=== PATIENT | male | born 1970 | race Caucasian/White ===

== ENCOUNTER 2018-01-03 05:23 | Inpatient (IN) | payer SELFPAY ==
[2018-01-03] MEDS ORDERED: VANCOMYCIN HCL INJ 1000 MG VIAL IV ONE (05:39)
[2018-01-03] MEDS ORDERED: CEFTRIAXONE 1 GM/D5W RTU 50 ML IV ONE (05:39)
--- NOTE | 2018-01-03 05:43 | ER Document Report ---
ED Medical Screen (RME) - General Chief Complaint: Hand Swelling Stated Complaint: POSSIBLE HAND INFECTION Time Seen by Provider: 01/03/18 05:38 TRAVEL OUTSIDE OF THE [place] IN LAST 30 DAYS: No - HPI Notes: 01/03/18 05:41 Patient is a 47-year-old male who presents to the ED complaining of worsening left hand pain and swelling as well as abscess over the last week. Patient states that he had a splinter to his left hand and was evaluated by another medical group at that time. He was placed on Keflex and has been on it for 6 days, but the pain and swelling has become worse. Patient states that he has limited range of motion to his hand/fingers due to the swelling and the swelling extends into his left arm. Denies CP/SOB/Abd pain/nvd. I have treated and performed a rapid initial assessment of this patient. A comprehensive ED assessment and evaluation of the patient, analysis of test results and completion of medical decision making process will be conducted by additional ED providers. PHYSICAL EXAMINATION: GENERAL: Well-appearing, well-nourished and in no acute distress. A&Ox4. Answers questions appropriately. LUNGS: Breath sounds clear to auscultation bilaterally and equal. No wheezes rales or rhonchi. HEART: Regular rate and rhythm without murmurs, rubs, gallops. MS: Left hand is very swollen, erythemic, and abscess to palm noted. Pt has difficulty extending/flexing digits and tenderness/pain in doing so. + tenderness to palm as well. Extremities: see above. NEUROLOGICAL: Normal speech, normal gait. PSYCH: Normal mood, normal affect. 01/03/18 05:45 - Related Data Allergies/Adverse Reactions: hydrocodone bitartrate [From Vicodin ES] Allergy (Intermediate, Verified 14:55) Hives Penicillins Allergy (Unknown, Verified 10/29/11 15:34) Past Medical History - Social History Chew tobacco use (# tins/day): No Frequency of alcohol use: Social Drug Abuse: Marijuana Renal/ Medical History: Denies: Hx Peritoneal Dialysis Past Surgical History: Reports: Hx Appendectomy, Hx Orthopedic Surgery - hardware in L hip d/t fracture - Immunizations Hx Diphtheria, Pertussis, Tetanus Vaccination: Yes Physical Exam - Vital signs Vitals: Temp Pulse Resp BP Pulse Ox 98.6 F 88 18 138/88 H 100 01/03/18 05:33 01/03/18 05:33 01/03/18 05:33 01/03/18 05:33 01/03/18 05:33 Course - Vital Signs Vital signs: Temp Pulse Resp BP Pulse Ox 98.6 F 88 18 138/88 H 100 01/03/18 05:33 01/03/18 05:33 01/03/18 05:33 01/03/18 05:33 01/03/18 05:33
[2018-01-03] MEDS ORDERED: CEFTRIAXONE INJ 1000 MG VIAL IV ONE (05:46)
[2018-01-03] MEDS ORDERED: MORPHINE SULFATE 10 MG/ML INJ IV ONE ×2 (06:05→07:38)
[2018-01-03 06:34] LABS: ABSOLUTE LYMPHOCYTES (AUTO) 1.8 10^3/uL (0.5-4.7); ABSOLUTE MONOCYTES (AUTO) 1.7 10^3/uL (0.1-1.4); ABSOLUTE NEUT (AUTO) 11.1 10^3/uL (1.7-8.2); BASOPHILS % (AUTO) 0.1 % (0-2); HEMATOCRIT 41.5 % (37.9-51.0); HEMOGLOBIN 14.1 g/dL (13.5-17.0); LYMPHOCYTES % (AUTO) 12.6 % (13-45); MEAN CORPUSCULAR HEMOGLOBIN 30.9 pg (27.0-33.4); MEAN CORPUSCULAR HGB CONC 33.9 g/dL (32.0-36.0); MEAN CORPUSCULAR VOLUME 91 fl (80-97); MONOCYTES % (AUTO) 11.5 % (3-13); PLATELET COUNT 253 10^3/uL (150-450); RED BLOOD COUNT 4.56 10^6/uL (4.35-5.55); RED CELL DISTRIBUTION WIDTH 13.2 % (11.5-14.0); SEGMENTED NEUTROPHILS % (AUTO) 75.8 % (42-78); TOTAL CELLS COUNTED % (AUTO) 100 %; WHITE BLOOD COUNT 14.6 10^3/uL (4.0-10.5)
--- NOTE | 2018-01-03 06:34 | ER Document Report ---
ED Hand/Wrist Injury - General Chief Complaint: Hand Swelling Stated Complaint: POSSIBLE HAND INFECTION Time Seen by Provider: 01/03/18 05:38 Mode of Arrival: Ambulatory Notes: History of complain-47 years old male had a injury to the left hand almost 10 days ago, was seen in another facility and they put him on antibiotic. But the hand was kept on swelling, and become more painful and become red. He noted small piece came out of the wound. Since is not healing and more painful he came to the ER. Has some chills but no fever. He has injured his hand prior to that. REVIEW OF SYSTEMS: CONSTITUTIONAL : Denies fever, chills, or sweats. Denies recent illness. EENT: Denies eye, ear, throat, or mouth pain or symptoms. Denies nasal or sinus congestion or discharge. Denies throat, tongue, or mouth swelling or difficulty swallowing. CARDIOVASCULAR: Denies chest pain. Denies palpitations or racing or irregular heart beat. Denies ankle edema. RESPIRATORY: Denies cough, cold, or chest congestion. Denies shortness of breath, difficulty breathing, or wheezing. GASTROINTESTINAL: Denies abdominal pain or distention. Denies nausea, vomiting , or diarrhea. Denies blood in vomitus, stools, or per rectum. Denies black, tarry stools. Denies constipation. GENITOURINARY: Denies difficulty urinating, painful urination, burning, frequency, blood in urine, or discharge. MUSCULOSKELETAL: Denies back or neck pain or stiffness. Denies joint pain or swelling. SKIN: Denies rash, lesions or sores. HEMATOLOGIC : Denies easy bruising or bleeding. LYMPHATIC: Denies swollen, enlarged glands. NEUROLOGICAL: Denies confusion or altered mental status. Denies passing out or loss of consciousness. Denies dizziness or lightheadedness. Denies headache. Denies weakness or paralysis or loss of use of either side. Denies problems with gait or speech. Denies sensory loss, numbness, or tingling. Denies seizures. PSYCHIATRIC: Denies anxiety or stress. Denies depression, suicidal ideation, or homicidal ideation. ALL OTHER SYSTEMS REVIEWED AND NEGATIVE. Dictation was performed using [employer] voice recognition software PHYSICAL EXAMINATION: GENERAL: Well-appearing, well-nourished and in no acute distress. HEAD: Atraumatic, normocephalic. EYES: Pupils equal round and reactive to light, extraocular movements intact, sclera anicteric, conjunctiva are normal. ENT: Nares patent, oropharynx clear without exudates. Moist mucous membranes. NECK: Normal range of motion, supple without lymphadenopathy LUNGS: Breath sounds clear to auscultation bilaterally and equal. No wheezes rales or rhonchi. HEART: Regular rate and rhythm without murmurs ABDOMEN: Soft, nontender, nondistended abdomen. No guarding, no rebound. No masses appreciated. Musculoskeletal: Normal range of motion, no pitting or edema. No cyanosis. NEUROLOGICAL: Cranial nerves grossly intact. Normal speech, normal gait. Normal sensory, motor exams PSYCH: Normal mood, normal affect. SKIN: Examination of the left hand shows in between thumb and index finger on the palmar surface of the hand to areas of whitish discoloration swelling and partially healing wound. Rest of the hand is swelled up like an inflated rubber glove. With diffuse erythema is warm and tender to touch. TRAVEL OUTSIDE OF THE [place] IN LAST 30 DAYS: No - Related Data Allergies/Adverse Reactions: hydrocodone bitartrate [From Vicodin ES] Allergy (Intermediate, Verified 14:55) Hives Penicillins Allergy (Unknown, Verified 10/29/11 15:34) Past Medical History - Social History Smoking Status: Current Every Day Smoker Chew tobacco use (# tins/day): No Frequency of alcohol use: Social Drug Abuse: Marijuana Family History: Reviewed & Not Pertinent Patient has suicidal ideation: No Patient has homicidal ideation: No Renal/ Medical History: Denies: Hx Peritoneal Dialysis Past Surgical History: Reports: Hx Appendectomy, Hx Orthopedic Surgery - hardware in L hip d/t fracture - Immunizations Hx Diphtheria, Pertussis, Tetanus Vaccination: Yes Hx Pneumococcal Vaccination: 09/10/00 Physical Exam - Vital signs Vitals: Temp Pulse Resp BP Pulse Ox 98.6 F 88 18 138/88 H 100 01/03/18 05:33 01/03/18 05:33 01/03/18 05:33 01/03/18 05:33 01/03/18 05:33 Course - Re-evaluation Re-evalutation: 01/03/18 09:00 His case was discussed with orthopedic surgeon manager instrumentation, he requested me to IND and send him over to the orthopedic clinic there for follow-up - Vital Signs Vital signs: Temp Pulse Resp BP Pulse Ox 97.6 F 67 18 153/87 H 100 01/03/18 08:58 01/03/18 08:58 01/03/18 08:58 01/03/18 08:58 01/03/18 08:58 - Laboratory Result Diagrams: 01/03/18 06:00 01/03/18 06:00 Laboratory results interpreted by me: 01/03/18 01/03/18 06:00 06:00 WBC 14.6 H Lymphocytes % 12.6 L Absolute Neutrophils 11.1 H Absolute Monocytes 1.7 H Glucose 114 H ALT 126 H Procedures - Incision and Drainage Left Hand Time completed: 09:50 Type: Complex, Multiple Anesthetic type: 2% Lidocaine mL's of anesthetic: 15 Blade size: 11 I&D procedure: Betadine prep applied, Chlorprep applied, Iodoform packing placed Incision Method: Incision made by scalpel Amount/type of drainage: 25cc Notes: 01/03/18 10:02 History an extensive abscess in the left palmar surface of the hand. Removed large amount of cheesy pus. Discharge - Discharge Clinical Impression: Cellulitis of left hand, Abscess of left hand Condition: Fair Disposition: ADMITTED INPATIENT Admitting Provider: Hospitalist
[2018-01-03 06:46] LABS: ALANINE AMINOTRANSFERASE 126 U/L (21-72); ALKALINE PHOSPHATASE 67 U/L (38-126); ANION GAP 11 (5-19); ASPARTATE AMINO TRANSFERASE 58 U/L (17-59); BILIRUBIN,DIRECT 0.3 mg/dL (0.0-0.4); BILIRUBIN,TOTAL 0.4 mg/dL (0.2-1.3); BLOOD UREA NITROGEN 12 mg/dL (7-20); CALCIUM 9.6 mg/dL (8.4-10.2); CARBON DIOXIDE 28 mmol/L (22-30); CHLORIDE 103 mmol/L (98-107); GLUCOSE 114 mg/dL (75-110); POTASSIUM 4.4 mmol/L (3.6-5.0); SODIUM 141.5 mmol/L (137-145); TOTAL PROTEIN 7.7 g/dL (6.3-8.2)
--- NOTE | 2018-01-03 07:08 | RADIOLOGY REPORT (SQ) ---
EXAM DESCRIPTION: CT LT UPPER EXTREMITY WITH CLINICAL HISTORY: 47 years Male, Left hand swelling/infection COMPARISON: None. TECHNIQUE: IV contrast. Coronal and sagittal reformat. This exam was performed according to our departmental dose-optimization program, which includes automated exposure control, adjustment of the mA and/or kV according to patient size and/or use of iterative reconstruction technique. FINDINGS: 4.4 x 2.6 x 4.2 cm complex phlegmonous pattern mass including fluid pockets measuring up to 1.6 cm measuring 0.5 cm deep from skin surface at the anterior left subcutaneous hand anterior to the second metacarpus. Moderate diffuse soft tissue swelling and edema with layered fluid in the posterior subcutaneous and measuring up to 0.9 cm in thickness. Bones, joints, and vasculature appear otherwise intact. No radiopaque foreign body identified. Mild ulnar minus variance. No direct CT evidence of advanced osteoarthritis. IMPRESSION: 1. A 4.4 cm phlegmonous subcutaneous mass of the anterior left hand. Recommend CR correlation. 2. Extensive subcutaneous effusion layered dorsally measuring up to 0.9 cm in thickness.
[2018-01-03] MEDS ORDERED: LIDOCAINE 2% INJ (20 MG/ML) 20 ML MDV INJ ONE (08:42)
[2018-01-03] MEDS ORDERED: HYDROMORPHONE HCL INJ/PF 2 MG/ML AMPULE ONE (09:32)
[2018-01-03] MEDS ORDERED: HYDROMORPHONE HCL INJ/PF 2 MG/ML AMPULE IV ONE (09:38)
[2018-01-03] MEDS ORDERED: ACETAMINOPHEN 325 MG TABLET PO PRN (10:56)
[2018-01-03] MEDS ORDERED: ZOLPIDEM TARTRATE 5 MG TABLET PO PRN (10:56)
[2018-01-03] MEDS ORDERED: HYDROMORPHONE HCL INJ/PF 2 MG/ML AMPULE IV PRN (10:56)
[2018-01-03] MEDS ORDERED: ONDANSETRON HCL INJ/PF 4 MG/2 ML SDV IV PRN (10:56)
[2018-01-03] MEDS ORDERED: OXYCODONE-ACETAMINOPHEN 5-325 MG TABLET PO PRN (10:56)
[2018-01-03] MEDS ORDERED: MORPHINE SULFATE IR 30 MG TABLET PO PRN (11:11)
[2018-01-03] MEDS: CLINDAMYCIN 600 MG/D5W RTU 600 MG/50 ML RTUPB IV SCH ×2 (11:34→18:03)
[2018-01-03] MEDS ORDERED: LORAZEPAM INJ 2 MG/1 ML VIAL IV ONE (11:45)
[2018-01-03] MEDS ORDERED: MORPHINE SULFATE SR 30 MG TABLET PO ONE (12:00)
[2018-01-03 12:21] LABS: URINE AMPHETAMINES SCREEN UNCONFIRMED POSITIVE; URINE BARBITURATES SCREEN NEGATIVE; URINE BENZODIAZEPINES SCREEN NEGATIVE; URINE COCAINE SCREEN NEGATIVE; URINE MARIJUANA (THC) SCREEN UNCONFIRMED POSITIVE; URINE METHADONE SCREEN NEGATIVE; URINE PHENCYCLIDINE SCREEN NEGATIVE
[2018-01-03] MEDS ORDERED: LORAZEPAM INJ 2 MG/1 ML VIAL IV PRN (13:51)
[2018-01-03] MEDS ORDERED: NICOTINE 21 MG/24 HR PATCH.TD24 TD ONE (14:00)
--- NOTE | 2018-01-03 14:04 | PDOC H&P ---
History of Present Illness Admission Date/PCP: 01/03/18 10:56 Patient complains of: Pain and swelling of left hand for around 1 week History of Present Illness: LIZETTE CROOKS is a 47 year old malePresented to ED complaining of pain and swelling to his left hand which have been getting progressively worse for around 1 week. Patient states that he thought he had a splinter in his left hand and he tried to take it out with a needle. Had been getting progressively swollen and painful. He went to [facility] last Sunday and accordingly nothing was done to him but to give him a prescription. He did not feel the prescription for Keflex because did not have any money. Patient denies any fever or chills. Patient denies doing drugs. Accordingly he may drink a beer on a daily basis. I was informed by ED physician that he performed an incision and drainage obtaining pus. While on this is care patient has been given morphine 8 mg IV and Dilaudid 1 mg IV. He denied noticing any splinter because accordingly patient removed it himself. He contacted Dr. 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 Patient denies hypertension, diabetes or any other medical illnesses Past Medical History Cardiac Medical History: Reports: None Pulmonary Medical History: Reports: None EENT Medical History: Reports: None Neurological Medical History: Reports: None Endocrine Medical History: Reports: None Renal/ Medical History: Reports: None Malignancy Medical History: Reports: None GI Medical History: Reports: None Musculoskeltal Medical History: Reports: None Skin Medical History: Reports: None Psychiatric Medical History: Reports: None Traumatic Medical History: Reports: None Hematology: Reports: None Infectious Medical History: Reports: None Past Surgical History Past Surgical History: Reports: Appendectomy, Orthopedic Surgery - hardware in L hip d/t fracture Social History Information Source: Patient Smoking Status: Current Every Day Smoker Frequency of Alcohol Use: Occasional Hx Recreational Drug Use: No Drugs: None - Advance Directive Resuscitation Status: Full Code Family History Family History: Reviewed & Not Pertinent Parental Family History Reviewed: Yes Children Family History Reviewed: Yes Sibling(s) Family History Reviewed.: Yes Medication/Allergy Home Medications: No Home Medications 1 10/29/11 Ibuprofen [Motrin 800 mg Tablet] 800 mg PO Q8HP PRN #30 tab 11/02/14 Tramadol HCl [Ultram] 50 mg PO Q4HP PRN #20 tablet 11/02/14 Allergies/Adverse Reactions: hydrocodone bitartrate [From Vicodin ES] Allergy (Intermediate, Verified 14:55) Hives Penicillins Allergy (Unknown, Verified 10/29/11 15:34) Review of Systems Constitutional: ABSENT: chills, fever(s), headache(s) Eyes: PRESENT: visual disturbances Ears: PRESENT: hearing changes Nose, Mouth, and Throat: PRESENT: mouth pain, sore throat Cardiovascular: ABSENT: chest pain, dyspnea on exertion, edema Respiratory: ABSENT: dyspnea, hemoptysis Gastrointestinal: ABSENT: abdominal pain, nausea, vomiting Genitourinary: ABSENT: dysuria Integumentary: PRESENT: wounds - left hand Neurological: ABSENT: focal weakness Endocrine: ABSENT: polyphagia, polyuria Physical Exam Vital Signs: Temp Pulse Resp BP Pulse Ox 97.6 F 67 18 153/87 H 100 01/03/18 08:58 01/03/18 08:58 01/03/18 08:58 01/03/18 08:58 01/03/18 08:58 General appearance: PRESENT: severe distress, well-developed, well-nourished Head exam: PRESENT: atraumatic, normocephalic Eye exam: PRESENT: conjunctiva pink, EOMI, PERRLA Mouth exam: PRESENT: moist Neck exam: PRESENT: full ROM. ABSENT: JVD, lymphadenopathy, tenderness Respiratory exam: PRESENT: clear to auscultation júnior Cardiovascular exam: PRESENT: tachycardia. ABSENT: diastolic murmur, systolic murmur Vascular exam: PRESENT: normal capillary refill GI/Abdominal exam: PRESENT: normal bowel sounds, soft. ABSENT: tenderness Extremities exam: PRESENT: full ROM, other - Left hand wrapped with Kerlix and noted blood in the thenar eminence Musculoskeletal exam: PRESENT: ambulatory Neurological exam: PRESENT: alert, awake, oriented to person, oriented to place , oriented to time, oriented to situation, CN II-XII grossly intact Psychiatric exam: PRESENT: anxious Skin exam: PRESENT: other - Unable to evaluate the wound since recently wrapped Results Impressions: Upper Extremity CT 01/03/18 05:39 IMPRESSION: 1. A 4.4 cm phlegmonous subcutaneous mass of the anterior left hand. Recommend CR correlation. 2. Extensive subcutaneous effusion layered dorsally measuring up to 0.9 cm in thickness. Assessment & Plan - Diagnosis (1) Puncture wound of left hand with infection Qualifiers: Encounter type: initial encounter Qualified Code(s): S61.432A - Puncture wound without foreign body of left hand, initial encounter; L08.9 - Local infection of the skin and subcutaneous tissue, unspecified; L08.9 - Local infection of the skin and subcutaneous tissue, unspecified Is this a current diagnosis for this admission?: Yes Plan: Consult Dr Mariscal. To place on Clindamycin. Pain management and anticipate may be problematic (2) Polysubstance abuse Is this a current diagnosis for this admission?: Yes Plan: UDS obtained and positive for THC and amphetamines. To place patient on thiamine and MVI (3) Cellulitis of left hand Is this a current diagnosis for this admission?: Yes Plan: To place patient on Clindamycin IV. (4) HTN (hypertension) Qualifiers: Hypertension type: essential hypertension Qualified Code(s): I10 - Essential (primary) hypertension Is this a current diagnosis for this admission?: Yes Plan: To start Norvasc and low-dose clonidine which may help controlling pain (5) Tobacco abuse Is this a current diagnosis for this admission?: Yes Plan: To order nicotine patch. Recommend to educate about quitting once he is calm - Time Time Spent: 30 to 50 Minutes Medications reviewed and adjusted accordingly: Yes Anticipated discharge: Home Within: within 72 hours - Inpatient Certification Based on my medical assessment, after consideration of the patient's comorbidities, presenting symptoms, or acuity I expect that the services needed warrant INPATIENT care.: Yes I certify that my determination is in accordance with my understanding of Medicare's requirements for reasonable and necessary INPATIENT services [42 CFR 412.3e].: Yes Medical Necessity: Significant Comorbidiites Make Outpatient Treatment Too Risky , Need Close Monitoring Due to Risk of Patient Decompensation, Need for IV Antibiotics
[2018-01-03] MEDS: NICOTINE 21 MG/24 HR PATCH.TD24 TD SCH (14:44)
[2018-01-03] MEDS: GABAPENTIN 300 MG CAPSULE PO SCH ×2 (14:44→22:19)
[2018-01-03] MEDS: MORPHINE SULFATE SR 30 MG TABLET PO SCH (22:20)
[2018-01-03] MEDS: CLONIDINE HCL 0.1 MG TABLET PO SCH (22:20)
[2018-01-04] MEDS: CLINDAMYCIN 600 MG/D5W RTU 600 MG/50 ML RTUPB IV SCH ×3 (00:07→13:57)
[2018-01-04] MEDS: GABAPENTIN 300 MG CAPSULE PO SCH ×3 (05:11→21:38)
[2018-01-04 06:10] LABS: ABSOLUTE BASOPHILS # (AUTO) 0.1 10^3/uL (0.0-0.2); ABSOLUTE EOSINOPHILS # (AUTO) 0.1 10^3/uL (0.0-0.6); ABSOLUTE LYMPHOCYTES (AUTO) 2.5 10^3/uL (0.5-4.7); ABSOLUTE MONOCYTES (AUTO) 1.8 10^3/uL (0.1-1.4); ABSOLUTE NEUT (AUTO) 8.6 10^3/uL (1.7-8.2); BASOPHILS % (AUTO) 0.6 % (0-2); EOSINOPHILS % (AUTO) 0.4 % (0-6); HEMATOCRIT 42.6 % (37.9-51.0); HEMOGLOBIN 14.4 g/dL (13.5-17.0); LYMPHOCYTES % (AUTO) 19.4 % (13-45); MEAN CORPUSCULAR HGB CONC 33.7 g/dL (32.0-36.0); MEAN CORPUSCULAR VOLUME 92 fl (80-97); MONOCYTES % (AUTO) 13.7 % (3-13); PLATELET COUNT 253 10^3/uL (150-450); RED BLOOD COUNT 4.64 10^6/uL (4.35-5.55); RED CELL DISTRIBUTION WIDTH 13.3 % (11.5-14.0); SEGMENTED NEUTROPHILS % (AUTO) 65.9 % (42-78); TOTAL CELLS COUNTED % (AUTO) 100 %
[2018-01-04 06:34] LABS: ANION GAP 12 (5-19); BLOOD UREA NITROGEN 14 mg/dL (7-20); CALCIUM 9.3 mg/dL (8.4-10.2); CARBON DIOXIDE 28 mmol/L (22-30); CHLORIDE 102 mmol/L (98-107); GLUCOSE 114 mg/dL (75-110); POTASSIUM 4.8 mmol/L (3.6-5.0); SODIUM 142.3 mmol/L (137-145)
[2018-01-04] MEDS: AMLODIPINE BESYLATE 5 MG TABLET PO SCH (09:30)
[2018-01-04] MEDS: CLONIDINE HCL 0.1 MG TABLET PO SCH ×2 (09:31→21:38)
[2018-01-04] MEDS: MORPHINE SULFATE SR 30 MG TABLET PO SCH ×2 (09:38→21:39)
[2018-01-04] MEDS: ENOXAPARIN SODIUM INJ 40 MG/0.4 ML DISP.SYRIN SUBCUT SCH (09:39)
[2018-01-04] MEDS ORDERED: HYDROMORPHONE HCL INJ/PF 2 MG/ML AMPULE ONE (14:50)
[2018-01-04] MEDS ORDERED: VANCOMYCIN HCL 0 MG in DEXTROSE 5%-WATER 250 ML IV NR (15:15)
[2018-01-04] MEDS ORDERED: HYDROMORPHONE HCL INJ/PF 2 MG/ML AMPULE IV ONE (15:30)
--- NOTE | 2018-01-04 15:34 | PDOC CONSULTATION ---
Consultation Consult Date: 01/04/18 Consult reason:: Left hand infection History of Present Illness Admission Date/PCP: 01/03/18 10:56 History of Present Illness: LIZETTE CROOKS is a 47 year old male mendez who had a wood splinter in his left hand on the palmar side just adjacent to the thumb. This is been brewing for the about a week or so. She has been seen in the ER and [facility] and was then referred down and came to [facility]. Complaining of swelling pain redness. I spoken with the ER who proceeded to do a lancing I&D and packing of the infection. Patient admitted for IV antibiotics as well. Past Medical History Cardiac Medical History: Reports: None Pulmonary Medical History: Reports: None EENT Medical History: Reports: None Neurological Medical History: Reports: None Endocrine Medical History: Reports: None Renal/ Medical History: Reports: None Malignancy Medical History: Reports: None GI Medical History: Reports: None Musculoskeltal Medical History: Reports: None Skin Medical History: Reports: None Psychiatric Medical History: Reports: None Denies: Depression Traumatic Medical History: Reports: None Hematology: Reports: None Infectious Medical History: Reports: None Past Surgical History Past Surgical History: Reports: Appendectomy, Orthopedic Surgery - hardware in L hip d/t fracture Social History Smoking Status: Current Every Day Smoker Cigarettes Packs Per Day: 0.5 Cigars Per Day: 0 Pipes Per Day: 0 Number of Years Smokin Last Time Smoked: Today Frequency of Alcohol Use: Heavy Hx Recreational Drug Use: Yes Drugs: Marijuana Hx Prescription Drug Abuse: No - Advance Directive Resuscitation Status: Full Code Family History Family History: Reviewed & Not Pertinent Parental Family History Reviewed: No Children Family History Reviewed: No Sibling(s) Family History Reviewed.: No Medication/Allergy Home Medications: No Home Medications 01/03/18 Allergies/Adverse Reactions: hydrocodone bitartrate [From Vicodin ES] Allergy (Intermediate, Verified 14:55) Hives Penicillins Allergy (Unknown, Verified 10/29/11 15:34) Review of Systems All systems: as per PMH Physical Exam Vital Signs: Temp Pulse Resp BP Pulse Ox 37.2 C 85 16 120/66 100 01/04/18 11:55 01/04/18 11:55 01/04/18 11:55 01/04/18 11:55 01/04/18 11:55 Intake & Output 01/03/18 01/04/18 01/05/18 06:59 06:59 06:59 Intake Total 1044 Balance 1044 Weight 65.4 kg General appearance: PRESENT: no acute distress Front of Hands Image: 1 - Unroofed that skin with with a deep crevice I can only express mostly blood with a tinge of pus. He is neurovascular intact grossly. Swelling significantly so present compared to the other side. No erythema. Results Laboratory Results: 01/04/18 05:24 01/04/18 05:24 01/04/18 01/04/18 05:24 05:24 WBC 13.0 H RBC 4.64 Hgb 14.4 Hct 42.6 MCV 92 MCH 31.0 MCHC 33.7 RDW 13.3 Plt Count 253 Seg Neutrophils % 65.9 Lymphocytes % 19.4 Monocytes % 13.7 H Eosinophils % 0.4 Basophils % 0.6 Absolute Neutrophils 8.6 H Absolute Lymphocytes 2.5 Absolute Monocytes 1.8 H Absolute Eosinophils 0.1 Absolute Basophils 0.1 Sodium 142.3 Potassium 4.8 Chloride 102 Carbon Dioxide 28 Anion Gap 12 BUN 14 Creatinine 0.69 Est GFR ( Amer) > 60 Est GFR (Non-Af Amer) > 60 Glucose 114 H Calcium 9.3 Magnesium 2.1 Impressions: Upper Extremity CT 01/03/18 05:39 IMPRESSION: 1. A 4.4 cm phlegmonous subcutaneous mass of the anterior left hand. Recommend CR correlation. 2. Extensive subcutaneous effusion layered dorsally measuring up to 0.9 cm in thickness. Assessment & Plan - Diagnosis (1) Abscess of left hand Is this a current diagnosis for this admission?: Yes Plan: 47-year-old status post lancing I&D of the left hand abscess on the volar aspect the thenar eminence. The the skin had peeled and unroofed and there is exposed tissue that will require wet-to-dry dressing. Will recommend twice daily wet-to-dry dressings after doing twice daily chlorhexidine soaks. I think IV antibiotics is all he needs at this point and will not require further I&D at the moment.
--- NOTE | 2018-01-04 17:36 | PDOC PROGRESS REPORT ---
Subjective Progress Note for:: 01/04/18 Subjective:: Patient is overall feeling better. 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 No fevers or chills. Dressing still intact. No chest pain or difficulty breathing. Patient is feeling very tired and has been sleeping a lot. He does not feel confused. He is eating and drinking without difficulty. Urinating and moving his bowels normally. Reason For Visit: INFECTED PUNCTURE WOUND OF LEFT HAND Physical Exam Vital Signs: Temp Pulse Resp BP Pulse Ox 98.3 F 75 16 114/70 100 01/04/18 16:00 01/04/18 16:00 01/04/18 16:00 01/04/18 16:00 01/04/18 16:00 Intake & Output 01/03/18 01/04/18 01/05/18 06:59 06:59 06:59 Intake Total 1044 Balance 1044 Weight 65.4 kg General appearance: PRESENT: no acute distress, cooperative, thin Head exam: PRESENT: atraumatic, normocephalic Eye exam: PRESENT: conjunctiva pink, EOMI. ABSENT: scleral icterus Ear exam: PRESENT: normal external ear exam Mouth exam: PRESENT: moist, neck supple, other - Multiple piercings without complication Neck exam: ABSENT: tenderness Respiratory exam: PRESENT: clear to auscultation júnior, unlabored. ABSENT: rales , rhonchi, wheezes Cardiovascular exam: PRESENT: RRR. ABSENT: systolic murmur Pulses: PRESENT: normal radial pulses GI/Abdominal exam: PRESENT: normal bowel sounds, soft. ABSENT: distended, mass , tenderness Rectal exam: PRESENT: deferred Extremities exam: ABSENT: pedal edema Musculoskeletal exam: PRESENT: other - Normal inspection with the exception of left hand dressed in a bulky post I&D dressing that is clean dry and intact, no cellulitis over the visible hand or arm. Neurological exam: PRESENT: alert, awake, oriented to person, oriented to place , oriented to situation, CN II-XII grossly intact Psychiatric exam: PRESENT: appropriate affect. ABSENT: anxious Skin exam: PRESENT: dry, intact, warm Results Laboratory Results: 01/04/18 05:24 01/04/18 05:24 01/04/18 01/04/18 05:24 05:24 WBC 13.0 H RBC 4.64 Hgb 14.4 Hct 42.6 MCV 92 MCH 31.0 MCHC 33.7 RDW 13.3 Plt Count 253 Seg Neutrophils % 65.9 Lymphocytes % 19.4 Monocytes % 13.7 H Eosinophils % 0.4 Basophils % 0.6 Absolute Neutrophils 8.6 H Absolute Lymphocytes 2.5 Absolute Monocytes 1.8 H Absolute Eosinophils 0.1 Absolute Basophils 0.1 Sodium 142.3 Potassium 4.8 Chloride 102 Carbon Dioxide 28 Anion Gap 12 BUN 14 Creatinine 0.69 Est GFR ( Amer) > 60 Est GFR (Non-Af Amer) > 60 Glucose 114 H Calcium 9.3 Magnesium 2.1 Impressions: Upper Extremity CT 01/03/18 05:39 IMPRESSION: 1. A 4.4 cm phlegmonous subcutaneous mass of the anterior left hand. Recommend CR correlation. 2. Extensive subcutaneous effusion layered dorsally measuring up to 0.9 cm in thickness. Assessment & Plan - Diagnosis (1) Coag negative Staphylococcus bacteremia Is this a current diagnosis for this admission?: Yes Plan: Blood cultures have now shown gram-positive cocci in clusters. His abscess culture is also showing the same. I have changed his antibiotic from clindamycin to vancomycin, pharmacy to dose. Will order echocardiogram, repeat blood cultures and will monitor the patient closely. Now he is hemodynamically stable. (2) Abscess of left hand Is this a current diagnosis for this admission?: Yes Plan: Left hand abscess was I&D in the ER. Patient is now being followed by orthopedic surgery who is providing wound care recommendations. Further I&D needed currently and they will continue to follow. (3) Cellulitis of left hand Is this a current diagnosis for this admission?: Yes Plan: Patient is on antibiotics as above, cellulitis improving after I&D. (4) Polysubstance abuse Is this a current diagnosis for this admission?: Yes Plan: We will discuss with patient if he is receptive. (5) Tobacco abuse Is this a current diagnosis for this admission?: Yes Plan: We will discuss with patient if he is receptive and when he is feeling better. - Time Time Spent with patient: 25-34 minutes Medications reviewed and adjusted accordingly: Yes - Inpatient Certification Based on my medical assessment, after consideration of the patient's comorbidities, presenting symptoms, or acuity I expect that the services needed warrant INPATIENT care.: Yes I certify that my determination is in accordance with my understanding of Medicare's requirements for reasonable and necessary INPATIENT services [42 CFR 412.3e].: Yes Medical Necessity: Need for IV Antibiotics
[2018-01-04] MEDS: VANCOMYCIN HCL 750 MG in DEXTROSE 5%-WATER 250 ML IV SCH (19:05)
[2018-01-05] MEDS: VANCOMYCIN HCL 750 MG in DEXTROSE 5%-WATER 250 ML IV SCH ×2 (03:08→09:40)
[2018-01-05] MEDS: GABAPENTIN 300 MG CAPSULE PO SCH ×3 (06:01→21:37)
[2018-01-05 06:48] LABS: HEMATOCRIT 41.1 % (37.9-51.0); HEMOGLOBIN 13.9 g/dL (13.5-17.0); MEAN CORPUSCULAR HEMOGLOBIN 31.1 pg (27.0-33.4); MEAN CORPUSCULAR HGB CONC 33.7 g/dL (32.0-36.0); MEAN CORPUSCULAR VOLUME 92 fl (80-97); PLATELET COUNT 278 10^3/uL (150-450); RED BLOOD COUNT 4.46 10^6/uL (4.35-5.55); RED CELL DISTRIBUTION WIDTH 13.4 % (11.5-14.0); WHITE BLOOD COUNT 8.1 10^3/uL (4.0-10.5)
--- NOTE | 2018-01-05 07:03 | PDOC PROGRESS REPORT ---
Subjective Progress Note for:: 01/05/18 Reason For Visit: INFECTED PUNCTURE WOUND OF LEFT HAND 47-year-old white male mendez with a nondominant left hand abscess status post I&D now on clindamycin. Cultures growing a gram-positive cocci in clusters from both the abscess and from his blood. Overall patient reports considerable improvement since yesterday. Physical Exam Vital Signs: Temp Pulse Resp BP Pulse Ox 37.0 C 62 16 111/62 99 01/04/18 23:25 01/04/18 23:25 01/04/18 23:25 01/04/18 23:25 01/04/18 23:25 Intake & Output 01/04/18 01/05/18 01/06/18 06:59 06:59 06:59 Intake Total 1044 2100 Output Total 800 Balance 1044 1300 Weight 65.4 kg 72.9 kg General appearance: PRESENT: no acute distress Head exam: PRESENT: normocephalic Respiratory exam: PRESENT: unlabored Cardiovascular exam: PRESENT: RRR Vascular exam: PRESENT: normal capillary refill Extremities exam: PRESENT: other - Left hand and bandage that had just been applied for wet-to-dry dressing change. Flexion extension of each digit is intact as well as sensory examination and brisk capillary refill. Results Impressions: Upper Extremity CT 01/03/18 05:39 IMPRESSION: 1. A 4.4 cm phlegmonous subcutaneous mass of the anterior left hand. Recommend CR correlation. 2. Extensive subcutaneous effusion layered dorsally measuring up to 0.9 cm in thickness. Status: Imported from PACS Assessment & Plan - Diagnosis (1) Abscess of left hand Is this a current diagnosis for this admission?: Yes Plan: 47-year-old white male with nondominant left hand abscess which is improving status post I&D and administration of clindamycin. Plan for continued dressing changes and antibiotics at this point. Antibiotics may be tailored depending on final cultures and sensitivities. - Time Time Spent with patient: 15-24 minutes Anticipated discharge: Home Within: Other
[2018-01-05 07:15] LABS: ANION GAP 9 (5-19); BLOOD UREA NITROGEN 14 mg/dL (7-20); CALCIUM 9.1 mg/dL (8.4-10.2); CARBON DIOXIDE 30 mmol/L (22-30); CHLORIDE 104 mmol/L (98-107); GLUCOSE 117 mg/dL (75-110); POTASSIUM 4.5 mmol/L (3.6-5.0); SODIUM 143.3 mmol/L (137-145)
[2018-01-05] MEDS: ENOXAPARIN SODIUM INJ 40 MG/0.4 ML DISP.SYRIN SUBCUT SCH (09:34)
[2018-01-05] MEDS: AMLODIPINE BESYLATE 5 MG TABLET PO SCH (09:40)
[2018-01-05] MEDS: MORPHINE SULFATE SR 30 MG TABLET PO SCH ×2 (09:40→21:37)
[2018-01-05] MEDS: NICOTINE 21 MG/24 HR PATCH.TD24 TD SCH (09:42)
[2018-01-05] MEDS: CLONIDINE HCL 0.1 MG TABLET PO SCH ×2 (11:26→21:37)
--- NOTE | 2018-01-05 15:06 | PDOC PROGRESS REPORT ---
Subjective Progress Note for:: 01/05/18 Subjective:: Patient's hand feeling better today. No fever or chills. Appetite good. Sleeping well. No chest pain or shortness of breath. No redness over the hand or arm that he can see. Reason For Visit: LEFT HAND CELLULITIS,ABSCESS LEFT HAND Physical Exam Vital Signs: Temp Pulse Resp BP Pulse Ox 99.1 F 66 16 108/71 99 01/05/18 11:10 01/05/18 11:10 01/05/18 11:10 01/05/18 11:10 01/05/18 11:10 General appearance: PRESENT: well-developed, well-nourished Head exam: PRESENT: atraumatic, normocephalic Eye exam: PRESENT: EOMI Mouth exam: PRESENT: moist, tongue midline Respiratory exam: PRESENT: clear to auscultation júnior, unlabored. ABSENT: rales , rhonchi, wheezes Cardiovascular exam: PRESENT: RRR. ABSENT: systolic murmur GI/Abdominal exam: PRESENT: normal bowel sounds, soft. ABSENT: distended, tenderness Rectal exam: PRESENT: deferred Extremities exam: ABSENT: pedal edema Musculoskeletal exam: PRESENT: other - Left hand with dressing in place. Seen by orthopedic surgeon yesterday and today. No cellulitis on the arm or fingers. Fingers with increased range of motion today. Neurological exam: PRESENT: alert, awake, oriented to person, oriented to place , oriented to situation, CN II-XII grossly intact Psychiatric exam: PRESENT: appropriate affect. ABSENT: anxious Skin exam: PRESENT: dry, intact, warm Results Impressions: Upper Extremity CT 01/03/18 05:39 IMPRESSION: 1. A 4.4 cm phlegmonous subcutaneous mass of the anterior left hand. Recommend CR correlation. 2. Extensive subcutaneous effusion layered dorsally measuring up to 0.9 cm in thickness. Assessment & Plan - Diagnosis (1) Abscess of left hand Is this a current diagnosis for this admission?: Yes Plan: Growing MRSA, sensitive to clindamycin, will continue clindamycin 900 mg IV every 8 hours. Will continue dressing changes per orthopedic surgery which include wet to dry dressings twice daily. (2) Cellulitis of left hand Is this a current diagnosis for this admission?: Yes Plan: Clindamycin 900 mg IV every 8 hours. (3) Polysubstance abuse Is this a current diagnosis for this admission?: Yes Plan: Did not discuss with the patient today. (4) Tobacco abuse Is this a current diagnosis for this admission?: Yes Plan: Did not discuss with patient today. (5) Staphylococcus aureus bacteremia Is this a current diagnosis for this admission?: Yes Plan: Yesterday when blood cultures showed gram-positive cocci in clusters or change the patient's antibiotic to vancomycin. Now the left hand abscess cultures have come back showing MRSA sensitive to clindamycin with vancomycin with an RALPH of 2. I am changing the antibiotics back to clindamycin. Will await final blood cultures. Will order echocardiogram. No murmur auscultated on exam today. - Time Time Spent with patient: 25-34 minutes Medications reviewed and adjusted accordingly: Yes - Inpatient Certification Based on my medical assessment, after consideration of the patient's comorbidities, presenting symptoms, or acuity I expect that the services needed warrant INPATIENT care.: Yes I certify that my determination is in accordance with my understanding of Medicare's requirements for reasonable and necessary INPATIENT services [42 CFR 412.3e].: Yes Medical Necessity: Need for IV Antibiotics
[2018-01-05] MEDS: CLINDAMYCIN 900 MG/D5W RTU 50 ML IV SCH (21:36)
[2018-01-06] MEDS: GABAPENTIN 300 MG CAPSULE PO SCH ×3 (06:25→21:49)
[2018-01-06] MEDS: CLINDAMYCIN 900 MG/D5W RTU 50 ML IV SCH ×3 (06:25→21:49)
[2018-01-06 07:07] LABS: ABSOLUTE BASOPHILS # (AUTO) 0.1 10^3/uL (0.0-0.2); ABSOLUTE LYMPHOCYTES (AUTO) 1.8 10^3/uL (0.5-4.7); ABSOLUTE MONOCYTES (AUTO) 1.2 10^3/uL (0.1-1.4); ABSOLUTE NEUT (AUTO) 5.7 10^3/uL (1.7-8.2); BASOPHILS % (AUTO) 0.9 % (0-2); EOSINOPHILS % (AUTO) 0.5 % (0-6); HEMATOCRIT 38.6 % (37.9-51.0); HEMOGLOBIN 13.1 g/dL (13.5-17.0); LYMPHOCYTES % (AUTO) 20.7 % (13-45); MEAN CORPUSCULAR HEMOGLOBIN 31.1 pg (27.0-33.4); MEAN CORPUSCULAR VOLUME 92 fl (80-97); MONOCYTES % (AUTO) 13.2 % (3-13); PLATELET COUNT 263 10^3/uL (150-450); RED BLOOD COUNT 4.21 10^6/uL (4.35-5.55); SEGMENTED NEUTROPHILS % (AUTO) 64.7 % (42-78); TOTAL CELLS COUNTED % (AUTO) 100 %; WHITE BLOOD COUNT 8.8 10^3/uL (4.0-10.5)
[2018-01-06 07:30] LABS: ANION GAP 10 (5-19); BLOOD UREA NITROGEN 14 mg/dL (7-20); CALCIUM 9.1 mg/dL (8.4-10.2); CARBON DIOXIDE 31 mmol/L (22-30); CHLORIDE 103 mmol/L (98-107); GLUCOSE 102 mg/dL (75-110); POTASSIUM 4.6 mmol/L (3.6-5.0); SODIUM 143.6 mmol/L (137-145)
--- NOTE | 2018-01-06 07:43 | PDOC PROGRESS REPORT ---
Subjective Progress Note for:: 01/06/18 Reason For Visit: LEFT HAND CELLULITIS,ABSCESS LEFT HAND 47-year-old white male mendez with a nondominant left hand thenar abscess secondary to splinter. Patient is status post I&D, dressing changes, and IV antibiotic therapy. Overall the patient reports improvement. Physical Exam Vital Signs: Temp Pulse Resp BP Pulse Ox 37.3 C 63 14 117/65 97 01/06/18 00:00 01/06/18 00:00 01/06/18 00:00 01/06/18 00:00 01/06/18 00:00 Intake & Output 01/05/18 01/06/18 01/07/18 06:59 06:59 06:59 Intake Total 2019 Balance 2019 Weight 74.4 kg General appearance: PRESENT: no acute distress Head exam: PRESENT: normocephalic Respiratory exam: PRESENT: unlabored Cardiovascular exam: PRESENT: RRR Pulses: PRESENT: normal radial pulses Vascular exam: PRESENT: normal capillary refill GI/Abdominal exam: PRESENT: soft Rectal exam: PRESENT: deferred Extremities exam: PRESENT: other - Left hand dressing is taken down today. Along the thenar crease there is a 2.5 x 1 cm area of exposed subcutaneous tissue and muscle. There is scant purulent drainage. Is fairly tender to palpation. Thumb flexion extension is intact as is sensation and vascular examination. Neurological exam: PRESENT: alert, awake, oriented to person, oriented to place , oriented to time, oriented to situation. ABSENT: motor sensory deficit Psychiatric exam: PRESENT: appropriate affect, normal mood. ABSENT: homicidal ideation, suicidal ideation Skin exam: PRESENT: dry, intact, warm. ABSENT: cyanosis, rash Results Laboratory Results: 01/06/18 06:22 01/06/18 06:22 01/06/18 01/06/18 06:22 06:22 WBC 8.8 RBC 4.21 L Hgb 13.1 L Hct 38.6 MCV 92 MCH 31.1 MCHC 34.0 RDW 13.0 Plt Count 263 Seg Neutrophils % 64.7 Lymphocytes % 20.7 Monocytes % 13.2 H Eosinophils % 0.5 Basophils % 0.9 Absolute Neutrophils 5.7 Absolute Lymphocytes 1.8 Absolute Monocytes 1.2 Absolute Eosinophils 0.0 Absolute Basophils 0.1 Sodium 143.6 Potassium 4.6 Chloride 103 Carbon Dioxide 31 H Anion Gap 10 BUN 14 Creatinine 0.63 Est GFR ( Amer) > 60 Est GFR (Non-Af Amer) > 60 Glucose 102 Calcium 9.1 Magnesium 2.1 Impressions: Upper Extremity CT 01/03/18 05:39 IMPRESSION: 1. A 4.4 cm phlegmonous subcutaneous mass of the anterior left hand. Recommend CR correlation. 2. Extensive subcutaneous effusion layered dorsally measuring up to 0.9 cm in thickness. Status: Imported from PACS Assessment & Plan - Diagnosis (1) Abscess of left hand Is this a current diagnosis for this admission?: Yes Plan: 47-year-old white male with a left nondominant thenar abscess status post I&D now on dressing changes. Overall the wound appears to be responding appropriately. The patient has been changed to clindamycin for an MSSA. I think at some point consideration could be given to oral antibiotics and dressing changes at home. - Time Time Spent with patient: 15-24 minutes Anticipated discharge: Home with Homehealth Within: Other
[2018-01-06] MEDS: NICOTINE 21 MG/24 HR PATCH.TD24 TD SCH (09:21)
[2018-01-06] MEDS: AMLODIPINE BESYLATE 5 MG TABLET PO SCH (09:21)
[2018-01-06] MEDS: ENOXAPARIN SODIUM INJ 40 MG/0.4 ML DISP.SYRIN SUBCUT SCH (09:21)
[2018-01-06] MEDS: MORPHINE SULFATE SR 30 MG TABLET PO SCH (09:21)
[2018-01-06] MEDS: CLONIDINE HCL 0.1 MG TABLET PO SCH (09:21)
[2018-01-06] MEDS ORDERED: MORPHINE SULFATE IR 15 MG TABLET PO PRN (15:59)
[2018-01-06] MEDS ORDERED: LORAZEPAM 1 MG TABLET PO PRN (16:01)
--- NOTE | 2018-01-06 16:05 | PDOC PROGRESS REPORT ---
Subjective Progress Note for:: 01/06/18 Subjective:: Patient is feeling good today. Pain is well controlled. Eating and drinking well. Moving his bowels without difficulty. No urinary difficulty. No abdominal pain nausea vomiting shortness of breath fever or chills. Reason For Visit: LEFT HAND CELLULITIS,ABSCESS LEFT HAND Physical Exam Vital Signs: Temp Pulse Resp BP Pulse Ox 99.2 F 61 16 112/60 98 01/06/18 15:57 01/06/18 15:57 01/06/18 15:57 01/06/18 15:57 01/06/18 15:57 Intake & Output 01/05/18 01/06/18 01/07/18 06:59 06:59 06:59 Intake Total 2019 540 Balance 2019 Weight 74.4 kg General appearance: PRESENT: no acute distress, cooperative, thin Head exam: PRESENT: atraumatic, normocephalic Mouth exam: PRESENT: neck supple, tongue midline Respiratory exam: PRESENT: clear to auscultation júnior, unlabored. ABSENT: rales , rhonchi, wheezes Cardiovascular exam: PRESENT: RRR. ABSENT: systolic murmur GI/Abdominal exam: PRESENT: normal bowel sounds, soft. ABSENT: distended, tenderness Extremities exam: ABSENT: pedal edema Neurological exam: PRESENT: alert, awake, oriented to person, oriented to place , oriented to situation, CN II-XII grossly intact Psychiatric exam: PRESENT: appropriate affect. ABSENT: anxious Skin exam: PRESENT: dry, warm, other - Left hand dressing clean dry and intact. He is undergoing twice daily wet-to-dry dressing changes. Results Laboratory Results: 01/06/18 06:22 01/06/18 06:22 01/06/18 01/06/18 06:22 06:22 WBC 8.8 RBC 4.21 L Hgb 13.1 L Hct 38.6 MCV 92 MCH 31.1 MCHC 34.0 RDW 13.0 Plt Count 263 Seg Neutrophils % 64.7 Lymphocytes % 20.7 Monocytes % 13.2 H Eosinophils % 0.5 Basophils % 0.9 Absolute Neutrophils 5.7 Absolute Lymphocytes 1.8 Absolute Monocytes 1.2 Absolute Eosinophils 0.0 Absolute Basophils 0.1 Sodium 143.6 Potassium 4.6 Chloride 103 Carbon Dioxide 31 H Anion Gap 10 BUN 14 Creatinine 0.63 Est GFR ( Amer) > 60 Est GFR (Non-Af Amer) > 60 Glucose 102 Calcium 9.1 Magnesium 2.1 Impressions: Upper Extremity CT 01/03/18 05:39 IMPRESSION: 1. A 4.4 cm phlegmonous subcutaneous mass of the anterior left hand. Recommend CR correlation. 2. Extensive subcutaneous effusion layered dorsally measuring up to 0.9 cm in thickness. Assessment & Plan - Diagnosis (1) Abscess of left hand Is this a current diagnosis for this admission?: Yes Plan: Resolved with incision and drainage.. (2) Cellulitis of left hand Is this a current diagnosis for this admission?: Yes Plan: No evidence cellulitis on the fingers or arm. Continue clindamycin. (3) Polysubstance abuse Is this a current diagnosis for this admission?: Yes (4) Tobacco abuse Is this a current diagnosis for this admission?: Yes (5) Staphylococcus aureus bacteremia Is this a current diagnosis for this admission?: Yes Plan: Patient is growing gram-positive cocci in clusters and one set of blood cultures. We will continue clindamycin for now until culture results final. Abscess culture grew MRSA sensitive to clindamycin. It is also possible that this is a staph contaminant. (6) Acute pain Is this a current diagnosis for this admission?: Yes Plan: Patient has been on MS Contin, IR morphine, gabapentin. I stopped the MS Contin and decrease the dose of IR morphine to 15 mg every 6 hours as needed severe pain or for dressing changes. We will continue gabapentin for now. Patient is not on these medications as an outpatient. - Time Time Spent with patient: 15-24 minutes Medications reviewed and adjusted accordingly: Yes - Inpatient Certification Based on my medical assessment, after consideration of the patient's comorbidities, presenting symptoms, or acuity I expect that the services needed warrant INPATIENT care.: Yes I certify that my determination is in accordance with my understanding of Medicare's requirements for reasonable and necessary INPATIENT services [42 CFR 412.3e].: Yes Medical Necessity: Need for IV Antibiotics
[2018-01-07] MEDS: GABAPENTIN 300 MG CAPSULE PO SCH ×2 (06:06→13:35)
[2018-01-07] MEDS: CLINDAMYCIN 900 MG/D5W RTU 50 ML IV SCH ×2 (06:06→13:35)
[2018-01-07] MEDS: NICOTINE 21 MG/24 HR PATCH.TD24 TD SCH (09:19)
[2018-01-07] MEDS: ENOXAPARIN SODIUM INJ 40 MG/0.4 ML DISP.SYRIN SUBCUT SCH (09:19)
[2018-01-07] MEDS: AMLODIPINE BESYLATE 5 MG TABLET PO SCH (09:20)
--- NOTE | 2018-01-07 18:32 | PDOC PROGRESS REPORT ---
Subjective Progress Note for:: 01/07/18 Subjective:: Patient feeling better, left hand pain improving, no redness, no fever or chills , no breathing problems or chest pain. Urinating well. Moving his bowels well. Reason For Visit: LEFT HAND CELLULITIS,ABSCESS LEFT HAND Physical Exam Vital Signs: Temp Pulse Resp BP Pulse Ox 98.8 F 67 16 106/66 98 01/07/18 07:30 01/07/18 07:30 01/07/18 07:30 01/07/18 07:30 01/07/18 07:30 Intake & Output 01/06/18 01/07/18 01/08/18 06:59 06:59 06:59 Intake Total 2019 1230 100 Output Total 750 Balance 2019 480 100 Weight 74.4 kg 75.1 kg General appearance: PRESENT: no acute distress, cooperative, well-developed, well-nourished Eye exam: PRESENT: EOMI. ABSENT: conjunctival injection, scleral icterus Ear exam: PRESENT: normal external ear exam Mouth exam: PRESENT: moist, tongue midline Respiratory exam: PRESENT: clear to auscultation júnior, unlabored. ABSENT: rales , rhonchi, wheezes Cardiovascular exam: PRESENT: RRR. ABSENT: systolic murmur Pulses: PRESENT: normal radial pulses GI/Abdominal exam: PRESENT: normal bowel sounds, soft. ABSENT: distended, firm , tenderness Extremities exam: ABSENT: pedal edema Musculoskeletal exam: PRESENT: other - Left hand being followed by orthopedic surgeon, dressing clean dry and intact, no cellulitis Neurological exam: PRESENT: alert, awake, oriented to person, oriented to place , oriented to situation, CN II-XII grossly intact Psychiatric exam: PRESENT: appropriate affect. ABSENT: anxious Skin exam: PRESENT: dry, warm Results Laboratory Results: 01/06/18 06:22 01/06/18 06:22 Impressions: Upper Extremity CT 01/03/18 05:39 IMPRESSION: 1. A 4.4 cm phlegmonous subcutaneous mass of the anterior left hand. Recommend CR correlation. 2. Extensive subcutaneous effusion layered dorsally measuring up to 0.9 cm in thickness. Assessment & Plan - Diagnosis (1) Abscess of left hand Is this a current diagnosis for this admission?: Yes Plan: I and D'ed in the ER. Now being followed by orthopedic surgery. Continuing twice daily dressing changes. He will need orthopedic surgery follow-up though I believe he will be able to do dressing changes at home. Can discharge him with dressing change supplies and instructions. (2) Cellulitis of left hand Is this a current diagnosis for this admission?: Yes Plan: Improved. Continue oral clindamycin for a total of 7 days of clindamycin. (3) Polysubstance abuse Is this a current diagnosis for this admission?: Yes (4) Tobacco abuse Is this a current diagnosis for this admission?: Yes (5) Staphylococcus aureus bacteremia Is this a current diagnosis for this admission?: Yes Plan: Blood culture 1 grew staph epi. Likely a contaminant. No longer think this patient has a bacteremia. We can transition to oral clindamycin and likely discharge tomorrow. (6) Acute pain Is this a current diagnosis for this admission?: Yes Plan: Improved. He is off of all pain medication with the exception of gabapentin which I am titrating down. He has as needed morphine available if needed for the remainder of his hospital stay. For discharge I will recommend ibuprofen and Tylenol. - Time Time Spent with patient: 15-24 minutes Medications reviewed and adjusted accordingly: Yes Anticipated discharge: Home Within: within 24 hours - Inpatient Certification Based on my medical assessment, after consideration of the patient's comorbidities, presenting symptoms, or acuity I expect that the services needed warrant INPATIENT care.: Yes I certify that my determination is in accordance with my understanding of Medicare's requirements for reasonable and necessary INPATIENT services [42 CFR 412.3e].: Yes Medical Necessity: Need Close Monitoring Due to Risk of Patient Decompensation, Risk of Complication if Not Cared For in Hospital Post Hospital Care: D/C Anatomical Embalmer Documentation - Patient is no insurance and tells us he cannot afford antibiotics or dressing change supplies. Have consulted resource management planner.
[2018-01-07] MEDS: GABAPENTIN 400 MG CAPSULE PO SCH (21:49)
[2018-01-07] MEDS: CLINDAMYCIN HCL 150 MG CAPSULE PO SCH (21:50)
[2018-01-07] MEDS ORDERED: GABAPENTIN 300 MG CAPSULE PO SCH (22:00)
[2018-01-08] MEDS: GABAPENTIN 400 MG CAPSULE PO SCH (06:04)
[2018-01-08] MEDS: CLINDAMYCIN HCL 150 MG CAPSULE PO SCH (06:04)
[2018-01-08 09:00] VITALS: BP 128/67
--- NOTE | 2018-01-08 09:02 | XCELERA REPORT ---
[address] [address] Transthoracic Echocardiogram Report Name: LIZETTE CROOKS Age: 47 yrs Gender: Male : 1970 Patient Status: Inpatient Patient Location: [address] [place] [address] Study Date: 01/07/2018 10:21 AM Height: 69 in Weight: 160 lb BSA: 1.9 m2 Procedure: A complete two-dimensional transthoracic echocardiogram was performed (2D, M-mode, spectral and color flow Doppler). The study was technically adequate with some images being suboptimal in quality. Reason For Study: MRSA bacteremia Ordering Physician: WALLY JEONG Performed By: Geraldine Carpio Interpretation Summary The left ventricular ejection fraction is normal. There is normal left ventricular wall thickness. The left ventricle is grossly normal size. Doppler measurements suggest normal left ventricular diastolic function No regional wall motion abnormalities noted. The right ventricular systolic function is normal. The right atrium is normal in size There is a trace amount of mitral regurgitation There is no mitral valve stenosis. There is no aortic valve stenosis No aortic regurgitation is present. There is no tricuspid stenosis. No tricuspid regurgitation. The aortic root is not well visualized but is probably normal size. The inferior vena cava appeared normal and decreased > 50% with respiration (RAP 5-10 mmHg) There is no pericardial effusion. MMode/2D Measurements & Calculations RVDd: 3.0 cm LVIDd: 4.8 cm FS: 39.3 % Ao root diam: 2.4 cm IVSd: 0.86 cm LVIDs: 2.9 cm EDV(Teich): 108.2 ml LVPWd: 0.87 cm ESV(Teich): 32.8 ml Ao root area: 4.6 cm2 EF(Teich): 69.7 % LA dimension: 3.3 cm Doppler Measurements & Calculations MV E max rohit: MV P1/2t max rohit: Ao V2 max: LV V1 max P.8 cm/sec 91.3 cm/sec 168.3 cm/sec 9.2 mmHg MV A max rohit: MV P1/2t: 63.3 msec Ao max PG: LV V1 max: 56.8 cm/sec 11.3 mmHg 151.5 cm/sec MV E/A: 1.6 MVA(P1/2t): 3.5 cm2 MV dec slope: 422.8 cm/sec2 MV dec time: 0.22 sec PA V2 max: TR max rohit: 90.8 cm/sec 283.7 cm/sec PA max PG: TR max P.2 mmHg 3.3 mmHg Left Ventricle The left ventricle is grossly normal size. There is normal left ventricular wall thickness. The left ventricular ejection fraction is normal. Doppler measurements suggest normal left ventricular diastolic function. No regional wall motion abnormalities noted. Right Ventricle The right ventricle is grossly normal size. There is normal right ventricular wall thickness. The right ventricular systolic function is normal. Atria The right atrium is normal in size. The left atrial size is normal. Interarterial septum not well visualized and not well dopplered. Cannot comment on ASD/PFO presence. Mitral Valve The mitral valve is grossly normal. There is no mitral valve stenosis. There is a trace amount of mitral regurgitation. Aortic Valve The aortic valve is grossly normal. There is no aortic valve stenosis. No aortic regurgitation is present. Tricuspid Valve The tricuspid valve is not well visualized, but is grossly normal. There is no tricuspid stenosis. No tricuspid regurgitation. Pulmonic Valve The pulmonic valve is not well visualized. Great Vessels The aortic root is not well visualized but is probably normal size. The inferior vena cava appeared normal and decreased > 50% with respiration (RAP 5-10 mmHg). Effusions There is no pericardial effusion. : WALLY JEONG > Adrian Lee
[2018-01-08] MEDS: NICOTINE 21 MG/24 HR PATCH.TD24 TD SCH (09:34)
[2018-01-08] MEDS: ENOXAPARIN SODIUM INJ 40 MG/0.4 ML DISP.SYRIN SUBCUT SCH (09:34)
== END 2018-01-08 12:11 | disposition home or self-care (01) | DRG 603 ==
LOC: ER 05:23 → EH 10:56 → INTOOBSV 10:56 → 4N 15:33 → OBSVTOIN 01-05 10:15
PROVIDERS: ADMIT Internal Medicine; ATTEND Internal Medicine
PROC: 0H9GXZZ Drainage of Left Hand Skin, External Approach (ICD-10-PCS; principal; 2018-01-05)
DX: L02.512 Cutaneous abscess of left hand (principal); L03.114 Cellulitis of left upper limb; G89.11 Acute pain due to trauma; F17.200 Nicotine dependence, unspecified, uncomplicated; S61.432A Puncture wound without foreign body of left hand, initial encounter; B95.61 Methicillin susceptible Staphylococcus aureus infection as the cause of diseases classified elsewhere; F12.10 Cannabis abuse, uncomplicated; F15.10 Other stimulant abuse, uncomplicated; I10 Essential (primary) hypertension; W45.8XXA Other foreign body or object entering through skin, initial encounter; Y92.9 Unspecified place or not applicable; Z88.0 Allergy status to penicillin; Z90.49 Acquired absence of other specified parts of digestive tract; Z88.5 Allergy status to narcotic agent
CPT/HCPCS: 36415; 80048; 80053; 80307; 83605; 83735; 85025; 85027; 87040; 87070; 87075; 87077; 87186; 87205; 93306; 96365; 96368; 96375; 96376; 99285; G0378; J0696; J1170; J2060; J2270; J3370; J3490; J7060